=== PATIENT | female | born 1990 | race Caucasian/White ===

== ENCOUNTER 2023-02-06 06:55 | Inpatient (IN) | payer OTHER, SELFPAY ==
[2023-02-06] VITALS (43 sets, daily range): BP systolic 90–162; BP diastolic 52–99; PULSE 71–137; TEMP 36.5–36.9; O2SAT 92–100; BMI 31.1
[2023-02-06 08:14] LABS: Absolute Lymphocyte Count 1.82 X10^3/uL (0.83-4.51); Absolute Neutrophil Count 7.6 X10^3/uL (2.0-7.7); Basophil# 0.08 X10^3/uL; Basophil% 0.7 % (0-1); Eosinophil# 0.12 X10^3/uL; Eosinophils% 1.1 % (0-5); Hematocrit 37.5 % (37-47); Hemoglobin 12.4 g/dL (12.0-15.0); Lymphocyte # 1.82 X10^3/ul (0.83-4.51); Lymphocyte % 16.9 % (19-41); Mean Corp Hgb Conc 33.1 g/dL (32-36); Mean Corpuscular Hgb 29.2 pg (27.0-32.0); Mean Corpuscular Volume 88.2 fL (81-99); Mean Platelet Vol. 10.8 fl (6.2-12.0); Monocyte# 0.79 X10^3/uL; Monocyte% 7.3 % (0-10); NRBC Flagged by Analyzer 0 % (0-5); Neutrophil # 7.63 X10^3/uL (2.7-7.7); Neutrophil % 70.9 % (47-70); Platelet Count 195 K/mm3 (150-450); RBC Distribution Width CV 15.6 % (11.6-14.6); RBC Distribution Width SD 50.2 fl (35.1-43.9); Red Blood Count 4.25 M/mm3 (4.2-5.4); White Blood Count 10.8 K/mm3 (4.4-11.0)
[2023-02-06] MEDS: Lactated Ringers 1,000 ML 50 ML IV (08:15)
[2023-02-06] MEDS: Penicillin G Pot 5,000,000 UNITS in 0.9% Normal Saline (100mL MB+) 100 ML 150 UNITS IV (08:35)
[2023-02-06] MEDS: 0.9% Normal Saline Single 100 ML IV.SOLN. INTRA-UTER (08:40)
[2023-02-06 08:45] LABS: Syphilis Antibodies Non-reactive
--- NOTE | 2023-02-06 08:46 | PCM.HP.OB ---
HPI - General General Date of Admission: 02/06/23 HPI Narrative KAMILLE JIMENEZ, is a 32 F at 40 weeks gestation who presents for an elective induction of labor. has been uncomplicated. Maternal Data Information MICHLE Calculator Estimated Delivery Date Method Current WG Current Estimate 02/06/23 Manual 40w 0d PFSH PFSH Medical History no medical history Home Medications loratadine 10 mg tablet (Allergy Relief (loratadine)) 10 mg PO DAILY PRN Allergies 02/06/23 [History Last Taken 02/05/23] [id number] 1 mg tablet 1 tab PO DAILY 02/06/23 [History Last Taken 02/05/23] Allergy/AdvReac Type Severity Reaction Status Date / Time No Known Drug Allergies Allergy None Verified 02/06/23 07:35 Family History no significant family his Surgical History no surgical history Social History Smoking Status: Never smoker History Elective abortions Hx Para 3 Spontaneous abortions Hx # Term Pregnancies Ectopic pregnancies Hx # Pregnancies Multiple births # of living children ROS Eyes Eyes: Denies blurry vision, change in vision or spots in vision ENT HEENT: Denies dizziness or headache(s) Cardiovascular Cardiovascular: Denies abdominal pain, chest pain or dyspnea Respiratory/Chest Respiratory/Chest: Denies cough, dyspnea, shortness of breath at rest or shortness of breath with exertion Gastrointestinal Gastrointestinal: Denies abdominal pain, diarrhea or vomiting Genitourinary Genitourinary: Denies change in urinary stream, difficulty urinating or dysuria Musculoskeletal Musculoskeletal: Reports none Integumentary Integumentary: Denies rash Neurologic Neurologic: Denies dizziness, headache(s), memory loss or weakness Psychiatric Psychiatric: Reports none Vital Signs Vital Signs Vital Signs: 02/06/23 07:32 02/06/23 07:32 02/06/23 07:32 Temperature Temperature Source Temporal Pulse Rate 104 H Blood Pressure 127/85 H BP Systolic 127 BP Diastolic 85 02/06/23 07:32 Temperature 98.1 F Temperature Source Pulse Rate Blood Pressure BP Systolic BP Diastolic Weight Weight: 170 lb 6.4 oz Body Mass Index (BMI) 31.1 Physical Exam Const alert, oriented x3 and no apparent distress General Appearance: cooperative Orientation / Consciousness: awake Exam Limitations: no limitations HEENT normocephalic Head and Scalp: normal to inspection Eyes General Eye: normal appearance of both eyes Neck full ROM and no lymphadenopathy Lymph Lymphatic: no lymphadenopathy noted Chest inspection of chest normal Resp normal respiratory effort, normal air movement and clear to auscultation bilaterally Effort and Inspection: able to speak in complete sentences and symmetric chest movement Cardio regular rate and regular rhythm GI normal to inspection, nondistended, normoactive bowel sounds Manual OB Exam: presentation cephalic Back/Spine normal ROM Extremity full ROM and no calf tenderness Skin no rashes or lesions noted General Skin Exam: no breakdown Neuro oriented x3 and CN's II-XII intact bilaterally Psych mental status grossly normal and thought process normal Labs Labs Labs: Blood Type AB POSITIVE Antibody Screen NEGATIVE Hct 37.5 % (37-47) Hgb 12.4 g/dL (12.0-15.0) Syphilis Total Ab Non-reactive Hepatitis C Antibody Non-Reactive (Nonreactive) GBS positive Assessment & Plan (1) 40 weeks gestation of : (2) Encounter for elective induction of labor: (3) Positive GBS test: PLAN: Plan Admit to labor and delivery Routine labs GBS positive- start PCN 5 million units IV x 1 now and continue PCN 3 million units IV every 3 hours until delivery CE- /-3 Emerson bulb placed without difficulty and filled with 40 cc N/S Cytotec 25 mcg PO x1 now- reassess in 4 hours Pain medication/Epidural when indicated Dr. Clinton notified and is aware of admission
[2023-02-06] MEDS: miSOPROStol 25 MCG TABLET PO (09:28)
[2023-02-06 09:31] LABS: Hepatitis C Antibody Non-Reactive (Nonreactive)
[2023-02-06] MEDS: CHLORHEXIDINE GLUC 2% CLOTH 1 EACH TOWELETTE TOPICAL (10:37)
[2023-02-06] MEDS: Penicillin G 3,000,000 Units 50 ML 100 UNITS IV ×2 (12:33→17:08)
[2023-02-06] MEDS: Oxytocin 15 Units/NS 250ml 15 UNITS/250 ML IV.SOLN 2 UNITS IV (13:47)
[2023-02-06] MEDS: LACTATED RINGERS 500 ML 999 ML IV (14:26)
[2023-02-06] MEDS: fentaNYL-bupivacaine (epidural) 100 ML BAG EPIDURAL (15:45)
--- NOTE | 2023-02-06 17:35 | PCM.PN.BLA ---
Progress Note Patient comfortable with epidural. Denies any pain. Assessment & Plan Assessment/Plan (1) Positive GBS test: (2) Encounter for elective induction of labor: (3) 40 weeks gestation of : PLAN: Plan CE- /-2 AROM for large amount of clear fluid Pitocin at 6 mu/ min- continue to increase per policy Cat. 1 tracing, NST reactive Anticipate
--- NOTE | 2023-02-06 19:30 | EX.PCM.OBRPT ---
Assessment & Plan (1) (spontaneous vaginal delivery): (2) Care and examination of lactating mother: Maternal Data Information MICHEL Calculator Estimated Delivery Date Method Current WG Current Estimate 02/06/23 Manual 40w 0d Gestational age: 40.0 weeks gestation Vaginal Delivery Maternal Presentation Maternal Presentation: Elective Induction Maternal Presentation: at 40 weeks gestation for elective induction of labor. Type of Induction: Pitocin, Emerson Bulb, Amniotomy and Cytotec Operative Information Date of Procedure: 02/06/23 Pre-Operative Diagnosis: Term gestation, elective induction of labor Post-Operative Diagnosis: , Live male Surgery / Procedure Performed: Spontaneous Vaginal Delivery Type of Anesthesia: Epidural Estimated Blood Loss: 100 Time of Delivery: 19:13 Findings Description of Procedure: Called to patient's bedside for deceleration. Patient found to be complete and +2 station. With minimal maternal effort, head followed by anterior shoulder and remainder of infant body delivered over intact perineum without traction. Vigorous male placed on maternal abdomen and attended to by nursing staff. IV Pitocin started for active management of the third stage of labor. 3 vessel cord clamped and cut by FOB after 2 minute delay. Infant placed immediately skin to skin with patient. Placenta delivered spontaneously and intact. Vagina and perineum intact. Fundus firm and 2 below U. Vaginal sweep completed by me. EBL 100 cc. APGARS 8/9. Patient and bonding well at this time. Dr. Clinton notified of delivery. Presentation: Vertex Amniotic Membrane Rupture Type: Artificial Time of Membrane Rupture: 1346 Amniotic Fluid Description: Clear Placental Delivery Description: Spontaneous Placenta Disposition: [facility] Cord Vessel Description: 3 Vessels Cord Entanglement: None Nuchal Cord Compression: Without compression Infant A Gender: Male (1 minute): 8 (5 minute): 9 Delayed Cord Clamping: Yes Post Vaginal Delivery Medications Given After Delivery: IV Pitocin Episiotomy Description: None Laceration: None Complication Complications: None
[2023-02-06] MEDS: Oxytocin 15 Units/NS 250ml 15 UNITS/250 ML IV.SOLN 83 UNITS IV (19:45)
[2023-02-06] MEDS: Benzocaine/Lanolin/Aloe Vera 1 SPRAY EACH TOPICAL (21:36)
[2023-02-06] MEDS: Naproxen 500 MG Tablet PO (23:48)
[2023-02-07 00:27] VITALS: BP 109/71; PULSE 94; RESP 16; TEMP 36.6; O2SAT 100
--- NOTE | 2023-02-07 02:05 | NURSING ---
Reviewed and agreed with Art HORVATH charting.
--- NOTE | 2023-02-07 02:55 | NURSING ---
Report given to Sarah HORVATH, taking over pt care at this time.
[2023-02-07 04:13] VITALS: BP 99/63; PULSE 83; RESP 16; TEMP 36.1; O2SAT 97
[2023-02-07] MEDS: Acetaminophen 500 MG Tablet 1000 MG PO ×2 (04:27→13:39)
--- NOTE | 2023-02-07 07:39 | PN.OBGYN_ITS ---
Subjective Subjective Patient seen at bedside. Resting quietly. Denies pain. Denies headache, dizziness, CP, or SOB. Lochia decreasing. with minimal support. Desires discharge home today. Has not voided since removal of epidural- needed straight cath Objective Data Objective Data Vital Signs: Vital Signs Temp Pulse Resp BP Pulse Ox O2 Del Method 97.0 F L 83 16 99/63 97 Room Air 02/07/23 04:13 02/07/23 04:13 02/07/23 04:13 02/07/23 04:13 02/07/23 04:13 02/07/23 04:13 Oxygen Delivery Method Room Air Weight: 170 lb 6.4 oz Body Mass Index (BMI) 31.1 Intake & Output: Intake and Output for Last 24 Hours 02/05/23 02/06/23 02/07/23 23:59 23:59 23:59 Intake Total 2102.48 / 2102.48 Output Total 700 / 700 450 / 450 Balance 1402.48 / 1402.48 -450 / -450 Lab / Micro Data 02/06/23 07:45 Labs: Laboratory Results - last 24 hr 02/06/23 07:45: WBC 10.8, RBC 4.25, Hgb 12.4, Hct 37.5, MCV 88.2, MCH 29.2, MCHC 33.1, RDW Std Deviation 50.2 H, RDW Coeff of Calin 15.6 H, Plt Count 195, MPV 10.8, Immature Gran % (Auto) 3.100 H, Neut % (Auto) 70.9 H, Lymph % (Auto) 16.9 L, [place] % (Auto) 7.3, Eos % (Auto) 1.1, Baso % (Auto) 0.7, Absolute Neuts (auto) 7.6, Absolute Lymphs (auto) 1.82, Nucleated RBC % 0, Syphilis Total Ab Non- reactive, Hepatitis C Antibody Non-Reactive, Blood Type AB POSITIVE, Antibody Screen NEGATIVE ROS Eyes Eyes: Denies blurry vision, change in vision or spots in vision ENT HEENT: Denies dizziness or headache(s) Cardiovascular Cardiovascular: Denies abdominal pain, chest pain or dyspnea Respiratory/Chest Respiratory/Chest: Denies cough, dyspnea, shortness of breath at rest or shortness of breath with exertion Gastrointestinal Gastrointestinal: Denies abdominal pain, diarrhea or vomiting Genitourinary Genitourinary: Denies change in urinary stream, difficulty urinating or dysuria Musculoskeletal Musculoskeletal: Reports none Integumentary Integumentary: Denies rash Neurologic Neurologic: Denies dizziness, headache(s), memory loss or weakness Physical Exam Const alert and no apparent distress General Appearance: cooperative and comfortable Exam Limitations: no limitations HEENT normocephalic Eyes General Eye: normal appearance of both eyes Neck full ROM General: normal visual inspection Chest Chest: symmetrical chest wall rise Resp normal respiratory effort and normal air movement Effort and Inspection: symmetric chest movement Auscultation: clear to auscultation bilaterally Cardio regular rate and regular rhythm GI normal to inspection, nondistended, normoactive bowel sounds Back/Spine normal ROM Extremity full ROM and no calf tenderness General Extremity: normal exam except as noted Skin no rashes or lesions noted Neuro CN's II-XII intact bilaterally Psych mental status grossly normal Assessment & Plan (1) Care and examination of lactating mother: (2) (spontaneous vaginal delivery): (3) Acute urinary retention: PLAN: Plan Patient needs to void by 1030 this morning Routine care support Requesting discharge home tonight- will reevaluate
[2023-02-07 08:56] VITALS: BP 114/80; PULSE 95; RESP 16; TEMP 525.7; TEMP 978.3; O2SAT 100
[2023-02-07] MEDS: Naproxen 500 MG Tablet PO (10:29)
[2023-02-07 13:43] VITALS: BP 108/70; PULSE 82; RESP 14; TEMP 37.1; O2SAT 96
--- NOTE | 2023-02-07 14:16 | DS.PCM_ITS ---
Providers Date of Admission: 02/06/23 Primary Care Physician: Dr. Jacky Aguirre MD Reason For Visit: VAGINAL DELIVERY Diagnosis Discharge Diagnosis (1) Care and examination of lactating mother: Status: Acute Code(s): Z39.1 - Encounter for care and examination of lactating mother (2) (spontaneous vaginal delivery): Status: Acute Code(s): O80 - Encounter for full-term uncomplicated delivery (3) Acute urinary retention: Status: Acute Code(s): R33.8 - Other retention of urine Plan - Patient has voided without difficulty Requesting discharge home Follow up in office Medications at Discharge Home Medications loratadine 10 mg tablet (Allergy Relief (loratadine)) 10 mg PO DAILY PRN Al kayla 02/06/23 [id number] 1 mg tablet 1 tab PO DAILY 02/06/23 Hospital Course Procedures None Summary of Care Provided Minutes Spent on Discharge: 20 Hospital Course: Patient had . Hospital course was uneventful. Physical Exam Const alert and no apparent distress General Appearance: cooperative and comfortable Exam Limitations: no limitations HEENT normocephalic Eyes General Eye: normal appearance of both eyes Neck full ROM General: normal visual inspection Chest Chest: symmetrical chest wall rise Resp normal respiratory effort and normal air movement Effort and Inspection: symmetric chest movement Auscultation: clear to auscultation bilaterally Cardio regular rate and regular rhythm GI normal to inspection, nondistended, normoactive bowel sounds Back/Spine normal ROM Extremity full ROM and no calf tenderness General Extremity: normal exam except as noted Skin no rashes or lesions noted Neuro CN's II-XII intact bilaterally Psych mental status grossly normal Weight / BMI Weight Weight: 170 lb 6.4 oz Body Mass Index (BMI) 31.1 ABG / Lab / Microbiology Data 02/06/23 07:45 D/C Instructions Discharge Diet: No restrictions Discharge Activity: Return to Normal Activity, May Shower and May Take a Tub Bath May resume sexual activity in: 4-6 weeks Weight Bearing Status: Weight bearing as tolerated Call your doctor if you observe: Fever of 101 or Higher, Inability to urinate, Using more than 1 pad per hour, Shortness of breath, Dizziness, Swelling in the ankles, Chest pain, Calf discomfort and Uncontrolled pain Please Follow Up With: Catrina Cohn CNM When: Within 10 days Meaningful Use Info Meaningful Use Diagnoses (Choose all that apply): None applicable Discharge Plan Admission Admit Date/Time: 02/06/23 06:55 Primary Reason for Your Visit: Labor and Delivery Attending Provider: Catrina Cohn Primary Care Provider: Jacky Aguirre Discharge Orders/Prescriptions Prescriptions: No Action loratadine [Allergy Relief (loratadine)] 10 mg tablet 10 mg PO DAILY PRN (Reason: Allergies) [id number] 1 mg tablet 1 tab PO DAILY Referrals / Follow Up: Catrina Cohn CNM [Med Staff - [facility]] - Jacky Aguirre MD [Primary Care Provider] - Disposition Discharge Orders: Discharge Patient (Routine); Ordered 02/07/23 Ordered By: Catrina Cohn
[2023-02-07 16:49] VITALS: BP 123/88; PULSE 74; RESP 16; TEMP 36.2
== END 2023-02-07 19:54 | disposition home or self-care (01) | DRG 807 ==
PROVIDERS: Obstetrics & Gynecology; Admitting Provider Advanced Practice Midwife; PCP Family Medicine; Visit Provider Advanced Practice Midwife
DX: O99.824 Streptococcus B carrier state complicating childbirth (principal); Z37.0 Single live birth; O76 Abnormality in fetal heart rate and rhythm complicating labor and delivery; R33.9 Retention of urine, unspecified; Z3A.40 40 weeks gestation of pregnancy
CPT/HCPCS: 59025; 59050; 85025; 86780; 86803; 86850; 86900; 86901; 99221; J7120; G0378